=== PATIENT | female | born 1955 | race Caucasian/White ===

== ENCOUNTER → 2018-08-14 | Outpatient (CLI) | payer BC ==
[2018-08-14 16:33] LABS: Albumin 4.6 g/dL (3.80-4.90); Albumin/Globulin Ratio 2.56 (1.60-3.17); Anion Gap 7.5 mmol/L (4.00-12.00); Calcium 10.2 mg/dL (8.7-10.3); Carbon Dioxide 29.5 mmol/L (21.6-31.8); Globulin 1.8 g/dL (1.6-3.3); LDL Cholesterol,Calculated 88.8 mg/dL (0.0-131.0); Potassium 5.2 mmol/L (3.5-5.5); Total Bilirubin 0.7 mg/dL (0.2-1.2); Total Protein 6.4 g/dL (6.2-8.2); VLDL Calculation 45.2 mg/dL (5.00-40.00)
[2018-08-14 17:46] LABS: Hemoglobin A1C 6.1 % (4.0-6.0)
== END | disposition home or self-care (01) ==
LOC: LABWHC1 09:32
PROVIDERS: ATTEND Family Medicine
DX: E78.00 Pure hypercholesterolemia, unspecified (principal); R73.01 Impaired fasting glucose; I10 Essential (primary) hypertension
CPT/HCPCS: 36415; 80053; 80061; 82550; 83036

== ENCOUNTER → 2018-11-27 | Outpatient (CLI) | payer BC ==
[2018-11-27 15:58] LABS: African American GFR (CKD) 106.9 (60.0-200.0); Albumin 4.9 g/dL (3.80-4.90); Albumin/Globulin Ratio 2.04 (1.60-3.17); Anion Gap 8.5 mmol/L (4.00-12.00); BUN/Creat Ratio 27.14 Ratio (12.00-20.00); Calcium 10.4 mg/dL (8.7-10.3); Carbon Dioxide 28.5 mmol/L (21.6-31.8); Globulin 2.4 g/dL (1.6-3.3); LDL Cholesterol,Calculated 88.8 mg/dL (0.0-131.0); Potassium 5.3 mmol/L (3.5-5.5); Total Bilirubin 0.6 mg/dL (0.3-1.2); Total Protein 7.3 g/dL (6.2-8.2); VLDL Calculation 34.2 mg/dL (5.00-40.00)
[2018-11-27 19:12] LABS: Hemoglobin A1C 5.9 % (4.0-6.0)
== END | disposition home or self-care (01) ==
LOC: LABWHC1 10:49
PROVIDERS: ATTEND Family Medicine
DX: E03.9 Hypothyroidism, unspecified (principal); E78.00 Pure hypercholesterolemia, unspecified; R73.01 Impaired fasting glucose
CPT/HCPCS: 36415; 80053; 80061; 83036; 84443

== ENCOUNTER → 2019-02-12 | Outpatient (CLI) | payer BC ==
[2019-02-12 16:17] LABS: African American GFR (CKD) 106.9 (60.0-200.0); Albumin 4.9 g/dL (3.80-4.90); Albumin/Globulin Ratio 2.72 (1.60-3.17); Anion Gap 9.7 mmol/L (4.00-12.00); BUN/Creat Ratio 28.57 Ratio (12.00-20.00); Carbon Dioxide 28.3 mmol/L (21.6-31.8); Chol/HDL Ratio 4.11; Globulin 1.8 g/dL (1.6-3.3); LDL Cholesterol,Calculated 98.4 mg/dL (0.0-131.0); Potassium 4.3 mmol/L (3.5-5.5); Total Bilirubin 0.6 mg/dL (0.2-1.2); Total Protein 6.7 g/dL (6.2-8.2); VLDL Calculation 38.6 mg/dL (5.00-40.00)
[2019-02-12 21:04] LABS: Hemoglobin A1C 5.8 % (4.0-6.0)
== END | disposition home or self-care (01) ==
LOC: LABWHC1 09:09
PROVIDERS: ATTEND Family Medicine
DX: E78.00 Pure hypercholesterolemia, unspecified (principal); I10 Essential (primary) hypertension; R73.01 Impaired fasting glucose; E03.9 Hypothyroidism, unspecified
CPT/HCPCS: 36415; 80053; 80061; 82550; 83036; 84443

== ENCOUNTER → 2019-08-10 | Outpatient (CLI) | payer BC ==
[2019-08-10 18:05] LABS: African American GFR (CKD) 106.1 (60.0-200.0); Albumin 4.5 g/dL (3.80-4.90); Anion Gap 8.5 mmol/L (4.00-12.00); BUN/Creat Ratio 32.86 Ratio (12.00-20.00); Calcium 9.6 mg/dL (8.7-10.3); Carbon Dioxide 28.5 mmol/L (21.6-31.8); Chol/HDL Ratio 3.29; Globulin 1.5 g/dL (1.6-3.3); LDL Cholesterol,Calculated 44.6 mg/dL (0.0-131.0); Non-African American GFR(CKD) 91.6 (60.0-200.0); Total Bilirubin 0.7 mg/dL (0.2-1.2); VLDL Calculation 35.4 mg/dL (5.00-40.00)
[2019-08-10 20:50] LABS: Hemoglobin A1C 6.1 % (4.0-6.0)
== END | disposition home or self-care (01) ==
LOC: LABWHC1 10:15
PROVIDERS: ATTEND Family Medicine
DX: I10 Essential (primary) hypertension (principal); E78.00 Pure hypercholesterolemia, unspecified; R73.01 Impaired fasting glucose
CPT/HCPCS: 36415; 80053; 80061; 82550; 83036

== ENCOUNTER → 2020-03-12 | Outpatient (CLI) | payer MEDICARE ==
[2020-03-12 12:17] LABS: Basophils % (A) 1 %; Eosinophils # (A) 0.2 k/uL (0-0.7); Eosinophils % (A) 5 %; HCT 42.4 % (34.0-46.0); HGB 14.1 gm/dL (11.4-16.0); Lymphocytes # (A) 1.8 k/uL (1.0-4.8); Lymphocytes % (A) 42 %; MCH 31.1 pg (25.0-35.0); MCHC 33.3 g/dL (31.0-37.0); MCV 93.5 fL (80.0-100.0); Mean Platelet Volume 7.2; Monocytes # (A) 0.2 k/uL (0-1.0); Monocytes % (A) 5 %; Neutrophils # (A) 1.9 k/uL (1.3-7.7); Neutrophils % (A) 44 %; Platelet Count 225 k/uL (150-450); RBC 4.53 m/uL (3.80-5.40); RDW 13.1 % (11.5-15.5); WBC 4.4 k/uL (3.8-10.6)
[2020-03-12 20:13] LABS: Hemoglobin A1C 5.9 % (4.0-6.0)
[2020-03-12 21:06] LABS: African American GFR (CKD) 105.4 (60.0-200.0); Albumin 4.9 g/dL (3.80-4.90); Albumin/Globulin Ratio 2.33 (1.60-3.17); Chol/HDL Ratio 3.7; Globulin 2.1 g/dL (1.6-3.3); LDL Cholesterol,Calculated 82.4 mg/dL (0.0-131.0); Non-African American GFR(CKD) 90.9 (60.0-200.0); Potassium 4.7 mmol/L (3.5-5.5); Total Bilirubin 0.6 mg/dL (0.2-1.2); VLDL Calculation 44.6 mg/dL (5.00-40.00)
== END | disposition home or self-care (01) ==
LOC: LABWHC1 10:07
PROVIDERS: ATTEND Family Medicine
DX: I10 Essential (primary) hypertension (principal); R73.01 Impaired fasting glucose; E78.00 Pure hypercholesterolemia, unspecified; E03.9 Hypothyroidism, unspecified
CPT/HCPCS: 36415; 80053; 80061; 82550; 83036; 84443; 85025

== ENCOUNTER → 2021-05-27 | Outpatient (CLI) | payer MEDICARE ==
[2021-05-27 19:45] LABS: Basophils # (A) 0.04 X 10*3/uL (0.00-0.10); Basophils % (A) 0.6 %; Eosinophils % (A) 2.8 %; HCT 44.1 % (37.2-46.3); Lymphocytes # (A) 1.61 X 10*3/uL (0.90-5.00); Lymphocytes % (A) 22.7 %; MCH 31.3 pg (27.0-32.0); MCHC 31.7 g/dL (32.0-37.0); MCV 98.4 fL (80.0-97.0); Mean Platelet Volume 10.8 fL (9.5-12.2); Monocytes % (A) 12.7 %; Neutrophils # (A) 4.33 X 10*3/uL (1.80-7.70); Neutrophils % (A) 60.9 %; Platelet Count 224 X 10*3/uL (140-440); RBC 4.48 X 10*6/uL (4.10-5.20); RDW 12.7 % (11.5-14.5)
[2021-05-27 21:24] LABS: ALT 33 U/L (8-44); AST 25 U/L (13-35); African American GFR (CKD) 107.3 (60.0-200.0); Albumin/Globulin Ratio 2.33 (1.60-3.17); Alkaline Phosphatase 82 U/L (41-126); BUN/Creat Ratio 17.26 Ratio (12.00-20.00); Blood Urea Nitrogen 11.2 mg/dL (9.0-27.0); Calcium 10.1 mg/dL (8.7-10.3); Carbon Dioxide 24.8 mmol/L (20.0-27.5); Chloride 96 mmol/L (96-109); Chol/HDL Ratio 3.59 Ratio; Globulin 2.1 g/dL (1.6-3.3); Glucose 108 mg/dL (70-110); LDL Cholesterol,Calculated 75.7 mg/dL (0.0-131.0); Non-African American GFR(CKD) 92.6 (60.0-200.0); Potassium 4.1 mmol/L (3.5-5.5); Sodium 137 mmol/L (135-145); Total Protein 7.1 g/dL (6.2-8.2)
== END | disposition home or self-care (01) ==
LOC: LABWHC1 11:17
PROVIDERS: ATTEND Family Medicine
DX: I10 Essential (primary) hypertension (principal); E78.00 Pure hypercholesterolemia, unspecified; E03.9 Hypothyroidism, unspecified; R73.01 Impaired fasting glucose
CPT/HCPCS: 36415; 80053; 80061; 83036; 84439; 84443; 85025

== ENCOUNTER 2021-11-21 12:05 | Emergency (ER) | payer MEDICARE ==
[2021-11-21 12:49] VITALS: BP 176/84; PULSE 65; RESP 20; TEMP 98.2
--- NOTE | 2021-11-21 13:07 | ED ---
General Adult HPI - General Chief complaint: Extremity Injury, Upper Stated complaint: Fall @1000/R wrist injury Time Seen by Provider: 11/21/21 12:50 Source: patient, RN notes reviewed, old records reviewed Mode of arrival: ambulatory Limitations: no limitations - History of Present Illness Initial comments: 66-year-old female that presents to the emergency room ambulatory with complaints of right wrist pain. Patient states that she tripped over a toy at 10:30 this morning landing on an outstretched right hand. She denies any shoulder or elbow pain denies any other injuries. She states that she did hit her left knee but denies pain at this time. Denies hitting her head, no loss of consciousness. -: hour(s) (3) Location: right, upper extremity (wrist) Radiation: non-radiation Severity scale (1-10): 2 Quality: aching Associated Symptoms: denies other symptoms Treatments Prior to Arrival: NSAID - Related Data Home Medications Medication Instructions Recorded Confirmed Benazepril/Hydrochlorothiazide 1 tab PO DAILY 11/21/21 11/21/21 [Benazepril-Hctz 20-12.5 mg Tab] Cholecalciferol [Vitamin D3 (125 125 mcg PO DAILY 11/21/21 11/21/21 Mcg = 5000 Iu)] Fish Oil/Dha/Epa [Fish Oil 1,200 1 cap PO DAILY 11/21/21 11/21/21 mg Fish Oil] L.acidoph,Paractiffanyi, B.lactis 1 cap PO DAILY 11/21/21 11/21/21 [Probiotic] Latanoprost/Pf [Latanoprost 0.005% 1 drop BOTH EYES HS 11/21/21 11/21/21 Eye Drop] Levothyroxine Sodium [Levo-T] 50 mcg PO DAILY 11/21/21 11/21/21 Magnesium Oxide [Mag-Ox] 400 mg PO DAILY 11/21/21 11/21/21 Metoprolol Tartrate [Lopressor] 50 mg PO QA 11/21/21 11/21/21 Metoprolol Tartrate [Lopressor] 75 mg PO 11/21/21 11/21/21 Temazepam [Restoril] 15 mg PO HS 11/21/21 11/21/21 Venlafaxine HCl ER [Effexor Xr] 75 mg PO DAILY 11/21/21 11/21/21 Vit C/E/Zn/Coppr/Lutein/Zeaxan 1 cap PO BID 11/21/21 11/21/21 [Preservision Areds 2 Softgel] cloNIDine HCL [Catapres] 0.1 mg PO QAM 11/21/21 11/21/21 cloNIDine HCL [Clonidine HCl] 0.3 mg PO HS 11/21/21 11/21/21 metFORMIN HCL 1,000 mg PO HS 11/21/21 11/21/21 metFORMIN HCL 500 mg PO QAM 11/21/21 11/21/21 Allergies Allergy/AdvReac Type Severity Reaction Status Date / Time No Known Allergies Allergy Verified 11/21/21 13:56 Review of Systems ROS Statement: Those systems with pertinent positive or pertinent negative responses have been documented in the HPI. ROS Other: All systems not noted in ROS Statement are negative. Past Medical History Past Medical History: Diabetes Mellitus, Hypertension Past Surgical History: Orthopedic Surgery Smoking Status: Never smoker Past Alcohol Use History: None Reported Past Drug Use History: None Reported General Exam Limitations: no limitations General appearance: alert, in no apparent distress Head exam: Present: atraumatic Neck exam: Absent: tenderness, meningismus Respiratory exam: Absent: respiratory distress, accessory muscle use Cardiovascular Exam: Present: regular rate Right Shoulder Exam: Present: full ROM. Absent: tenderness, swelling Upper Arm exam: Present: full ROM. Absent: tenderness Elbow exam: Present: normal inspection, full ROM. Absent: tenderness Forearm Wrist exam: Present: tenderness, swelling, ecchymosis (Hematoma noted to volar wrist). Absent: abrasion, erythema, tenderness over anatomical snuff box, pain with axial thumb loading Hand Wrist exam: Present: normal inspection, full ROM. Absent: tenderness Neuro motor exam: Present: thumb opposition intact, thumb IP flexion intact, thumb adduction intact, fingers 2-5 abduction intact Neurosensory exam: Present: radial nerve intact, ulnar nerve intact, median nerve intact Vascular: Present: normal capillary refill, radial pulse. Absent: vascular compromise Neurological exam: Present: alert, oriented X3 Psychiatric exam: Present: normal affect, normal mood Skin exam: Present: warm, dry, normal color. Absent: cyanosis, diaphoretic, petechiae, pallor Course Vital Signs 11/21/21 12:45 Temperature 98.2 F Pulse Rate 65 Respiratory 20 Rate Blood Pressure 176/84 O2 Sat by Pulse 98 Oximetry Procedures - Orthopedic Splinting/Casting Injury #1 Side: right Upper Extremity Injury Location: wrist (Patient is neurovascularly intact prior to and post splinting) Upper Extremity Immobilizer: volar splint, Dung wrap, synthetic pre-padded splint Medical Decision Making - Medical Decision Making Right wrist x-ray shows a dorsal fracture of the triquetrum with borderline widening of the scapholunate. Patient was placed in a short arm volar splint, neurovascularly intact prior to and post splinting. She was directed to rest, ice elevate and wear splint until seen by orthopedics. She is requesting to see Dr. Lawson. Patient was directed to return to the emergency room with any new or concerning symptoms including increased pain, pallor or numbness. She is agreeable to this plan of care. She was given Tylenol 3 take-home pack and instructed to take Motrin for inflammation and pain. Disposition Clinical Impression: Fracture, triquetral bone Disposition: HOME SELF-CARE Condition: Good Instructions (If sedation given, give patient instructions): Wrist Fracture in Adults (ED) Additional Instructions: Rest, ice, elevate and wear splint until seen by orthopedics next week. Return to the emergency room with any new or concerning symptoms including increased pain, discoloration or numbness. Tylenol and/or Motrin as needed for pain. Is patient prescribed a controlled substance at d/c from ED?: No Referrals: Carol Moscoso DO [Primary Care Provider] - 1-2 days Perico Waller PAC [PHYSICIAN BIRD TRAPPER] - 1-2 days Edouard Lawson MD [Medical Doctor] - 1-2 days Time of Disposition: 14:13
--- NOTE | 2021-11-21 13:25 | XR ---
EXAMINATION TYPE: XR wrist complete RT DATE OF EXAM: 11/21/2021 COMPARISON: NONE HISTORY: 66-year-old female with fall and wrist pain TECHNIQUE: 4 views FINDINGS: Mild degenerative change first CMC and triscaphe joints. Additional degenerative spurring a t the distal radioulnar joint. Corticated 3 mm bone fragment adjacent to the ulnar styloid process co uld reflect sequela of remote injury there is a fracture along the dorsal triquetrum on the lateral v iew with overlying soft tissue swelling. Slight prominence of the scapholunate interval of about 3 mm . IMPRESSION: 1. Dorsal fracture of the triquetrum on the lateral view. 2. Borderline widening of the scapholunate interval at 3 mm. Underlying age indeterminate scapholunat e ligament injury not excluded. 3. 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
[2021-11-21] MEDS ORDERED: IBUPROFEN 800 MG TAB PO STA (14:11)
[2021-11-21] MEDS ORDERED: ACET/COD 300 MG/30 MG STARTER PACK 6 TAB BTL PO STA (14:12)
== END 2021-11-21 14:23 | disposition home or self-care (01) ==
LOC: EC 12:05
DX: S62.111A Displaced fracture of triquetrum [cuneiform] bone, right wrist, initial encounter for closed fracture (principal); I10 Essential (primary) hypertension; E11.9 Type 2 diabetes mellitus without complications; Z79.899 Other long term (current) drug therapy; Z79.84 Long term (current) use of oral hypoglycemic drugs; W22.8XXA Striking against or struck by other objects, initial encounter; Y92.009 Unspecified place in unspecified non-institutional (private) residence as the place of occurrence of the external cause
CPT/HCPCS: 29125; 99283